=== PATIENT | male | born 1965 | race African-American/Black ===

== ENCOUNTER 2017-02-01 08:47 | Emergency (ER) | payer BC ==
[2017-02-01] MEDS ORDERED: Labetalol IV* 5 MG/ML 20 ML VIAL IV PUSH ONE ×2 (09:15→11:15)
[2017-02-01] MEDS ORDERED: ValACYclovir (*) 1 GM TAB PO ONE (09:16)
[2017-02-01 09:40] LABS: Hematocrit 45 % (42-52); Hemoglobin 14.8 g/dl (14.0-18.0); Mean Corpuscular HGB Conc 33 g/dl (31-36); Mean Corpuscular Hemoglobin 26 pg (27-31); Mean Corpuscular Volume 81 fL (80-94); Mean Platelet Volume 9 um3 (7.4-10.4); Red Blood Count 5.61 10^6/ul (4.0-5.4); Red Cell Distribution Width 14 % (10.5-15); White Blood Count 11.8 10^3/ul (3.5-10.8)
[2017-02-01 09:43] LABS: Add Diff/Slide Review? Slide Review Added; Comments Flag Yes
[2017-02-01 09:58] LABS: Albumin 4.1 g/dL (3.2-5.2); BUN/Creatinine Ratio 10.7 (8-20); Calcium 9.3 mg/dL (8.6-10.3); EGFR African American 124.9 (>60); EGFR Non-African American 97.1 (>60); Globulin 3.3 g/dL (2-4); Potassium 3.7 mmol/L (3.5-5.0); Total Bilirubin 0.6 mg/dL (0.2-1.0); Total Protein 7.4 g/dL (6.4-8.9)
[2017-02-01] MEDS ORDERED: predniSONE TAB* 20 MG PO ONE (11:14)
--- NOTE | 2017-02-01 11:21 | RAD ---
Indication: LEFT side facial numbness. Unable to completely close the LEFT eye. Previous similar episode. Comparison: No relevant prior exams available on the [facility] for comparison. Technique: Noncontrast CT vertex of skull through foramen magnum. Report: The sulci, ventricles, and basal cisterns are normal for age. Tracy matter white matter differentiation is preserved without evidence for edema. No intra or extra axial hemorrhage, mass, or fluid collection detected. Unremarkable visualized orbital contents. Unremarkable calvarium and skull base. Unremarkable scalp. The visualized paranasal sinuses and mastoid air spaces are clear. IMPRESSION: Negative unenhanced head CT.
[2017-02-01 11:39] LABS: Urine Bacteria Absent (Absent); Urine Bilirubin Negative (Negative); Urine Glucose Negative (Negative); Urine Nitrite Negative (Negative)
[2017-02-01 12:28] VITALS: BP 148/107
--- NOTE | 2017-02-02 17:40 | ED ---
Gwendolyn Alfred Edward, scribed for Antony Alves MD on 02/01/17 at 1000 . Neurological HPI - HPI Summary HPI Summary: 51 y/o male presents to ED with left facial drooping. Facial droop started yesterday and has not resolved. 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 Associated sx: discomfort in the back of his left neck that started 2 days ago, fever 2 days ago (resolved). Denies cold sores. 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 Patient is a daily smoker, no EtOH, no drug use. - History of Current Complaint Chief Complaint: EDNeurologicalDeficit Stated Complaint: LT SIDE FACIAL NUMBNESS Time Seen by Provider: 02/01/17 08:57 Hx Obtained From: Patient Onset/Duration: Started days ago - Started yesterday Timing: Constant Neurological Deficit Location: Facial - Left facial drooping Pain Intensity: 2 Character: Other: - Left facial drooping Aggravating: Nothing Alleviating: Nothing Associated Signs and Symptoms: Positive: Pain - Neck pain, back left, Fever - 2 days, none currently - Allergy/Home Medications Allergies/Adverse Reactions: Allergies Allergy/AdvReac Type Severity Reaction Status Date / Time Shellfish Allergy Allergy Anaphylatic Verified 02/01/17 09:07 Shock Home Medications: Home Medications Diltiazem XR (NF) [Cartia XR (NF)] 240 mg PO DAILY 02/01/17 [History Confirmed 02/01/17] Pravastatin (NF) [Pravachol (NF)] 10 mg PO DAILY 02/01/17 [History Confirmed ] PMH/Surg Hx/FS Hx/Imm Hx Previously Healthy: No Cardiovascular History: Reports: Hx Hypertension - Takes Diltiazem Neurological History: Reports: Other Neuro Impairments/Disorders - Webb's palsy - Surgical History Surgery Procedure, Year, and Place: Root canal November 2016 Infectious Disease History: No Infectious Disease History: Denies: Traveled Outside the [place] in Last 30 Days - Family History Known Family History: Positive: Hypertension - Father's side, Diabetes - mother' s side, Other - Mother's side - CHF; Sister - substance abuse, dialysis - Social History Alcohol Use: None Hx Substance Use: No Substance Use Type: Reports: None Hx Tobacco Use: Yes Smoking Status (MU): Heavy Every Day Tobacco Smoker Review of Systems Positive: Fever - 2 days ago. None currently Eyes: Negative ENT: Negative Cardiovascular: Negative Respiratory: Negative Gastrointestinal: Negative Genitourinary: Negative Positive: Myalgia - Back left neck discomfort Skin: Negative Positive: Weakness - Left facial weakness Psychological: Normal All Other Systems Reviewed And Are Negative: Yes Physical Exam - Summary Physical Exam Summary: VITAL SIGNS:~Reviewed. GENERAL:~~Patient is a well-developed and nourished male who is lying comfortable in the stretcher. ~Patient is not in any acute respiratory distress. HEAD AND FACE:~No signs of trauma.~~No ecchymosis, hematomas or skull depressions.~No sinus tenderness. EYES:~PERRLA, EOMI x 2, No injected conjunctiva, no nystagmus. No photophobia. EARS:~Hearing grossly intact. Ear canals and tympanic membranes are within normal limits. MOUTH:~Oropharynx within normal limits. NECK:~Supple, trachea is midline, no adenopathy, no JVD, no carotid bruit, no c- spine tenderness, neck with full ROM. No meningeal signs, no Kernig's or brudzinskis signs. CHEST:~Symmetric, no tenderness at palpation LUNGS:~Clear to auscultation bilaterally. No wheezing or crackles. CVS:~Regular rate and rhythm, S1 and S2 present, no murmurs or gallops appreciated. ABDOMEN:~Soft, non-tender. No signs of distention. No rebound no guarding, and no masses palpated. Bowel sounds are normal. EXTREMITIES:~FROM in all major joints, no edema, no cyanosis or clubbing. NEURO:~Alert and oriented x 3. Left facial weakness. Speech is normal and follows commands. SKIN:~Dry and warm Triage Information Reviewed: Yes Vital Signs On Initial Exam: Initial Vitals Temp Pulse Resp BP Pulse Ox 97.7 F 96 20 176/117 98 02/01/17 08:48 02/01/17 08:48 02/01/17 08:48 02/01/17 08:48 02/01/17 08:48 Vital Signs Reviewed: Yes - Irwin Coma Scale Coma Scale Total: 15 Diagnostics - Vital Signs Vital Signs Temp Pulse Resp BP Pulse Ox 02/01/17 08:54 97.7 F 92 20 176/117 100 02/01/17 08:48 97.7 F 96 20 176/117 98 - Laboratory Lab Results: Lab Results 02/01/17 02/01/17 02/01/17 Range/Units 09:25 09:25 09:25 WBC 11.8 H (3.5-10.8) 10^3/ul RBC 5.61 H (4.0-5.4) 10^6/ul Hgb 14.8 (14.0-18.0) g/dl Hct 45 (42-52) % MCV 81 (80-94) fL MCH 26 L (27-31) pg MCHC 33 (31-36) g/dl RDW 14 (10.5-15) % Plt Count 196 (150-450) 10^3/ul MPV 9 (7.4-10.4) um3 Neut % (Auto) 58.8 (38-83) % Lymph % (Auto) 25.0 (25-47) % Har[place] % (Auto) 14.4 H (1-9) % Eos % (Auto) 1.1 (0-6) % Baso % (Auto) 0.7 (0-2) % Absolute Neuts (auto) 7.0 (1.5-7.7) 10^3/ul Absolute Lymphs (auto) 3.0 (1.0-4.8) 10^3/ul Absolute Monos (auto) 1.7 H (0-0.8) 10^3/ul Absolute Eos (auto) 0.1 (0-0.6) 10^3/ul Absolute Basos (auto) 0.1 (0-0.2) 10^3/ul Absolute Nucleated RBC 0.01 10^3/ul Nucleated RBC % 0.1 Sodium 136 (133-145) mmol/L Potassium 3.7 (3.5-5.0) mmol/L Chloride 104 (101-111) mmol/L Carbon Dioxide 27 (22-32) mmol/L Anion Gap 5 (2-11) mmol/L BUN 9 (6-24) mg/dL Creatinine 0.84 (0.67-1.17) mg/dL Est GFR ( Amer) 124.9 (>60) Est GFR (Non-Af Amer) 97.1 (>60) BUN/Creatinine Ratio 10.7 (8-20) Glucose 100 (70-100) mg/dL Calcium 9.3 (8.6-10.3) mg/dL Total Bilirubin 0.60 (0.2-1.0) mg/dL AST 16 (13-39) U/L ALT 16 (7-52) U/L Alkaline Phosphatase 105 H (34-104) U/L Total Protein 7.4 (6.4-8.9) g/dL Albumin 4.1 (3.2-5.2) g/dL Globulin 3.3 (2-4) g/dL Albumin/Globulin Ratio 1.2 (1-3) Urine Color Urine Appearance Urine pH (5-9) Ur Specific [place] (1.010-1.030) Urine Protein (Negative) Urine Ketones (Negative) Urine Blood (Negative) Urine Nitrate (Negative) Urine Bilirubin (Negative) Urine Urobilinogen (Negative) Ur Leukocyte Esterase (Negative) Urine WBC (Auto) (Absent) Urine RBC (Auto) (Absent) Ur Squamous Epith Cells (Absent) Urine Bacteria (Absent) Urine Glucose (Negative) Lyme Disease Serology Negative (Negative) 02/01/17 Range/Units 11:20 WBC (3.5-10.8) 10^3/ul RBC (4.0-5.4) 10^6/ul Hgb (14.0-18.0) g/dl Hct (42-52) % MCV (80-94) fL MCH (27-31) pg MCHC (31-36) g/dl RDW (10.5-15) % Plt Count (150-450) 10^3/ul MPV (7.4-10.4) um3 Neut % (Auto) (38-83) % Lymph % (Auto) (25-47) % Har[place] % (Auto) (1-9) % Eos % (Auto) (0-6) % Baso % (Auto) (0-2) % Absolute Neuts (auto) (1.5-7.7) 10^3/ul Absolute Lymphs (auto) (1.0-4.8) 10^3/ul Absolute Monos (auto) (0-0.8) 10^3/ul Absolute Eos (auto) (0-0.6) 10^3/ul Absolute Basos (auto) (0-0.2) 10^3/ul Absolute Nucleated RBC 10^3/ul Nucleated RBC % Sodium (133-145) mmol/L Potassium (3.5-5.0) mmol/L Chloride (101-111) mmol/L Carbon Dioxide (22-32) mmol/L Anion Gap (2-11) mmol/L BUN (6-24) mg/dL Creatinine (0.67-1.17) mg/dL Est GFR ( Amer) (>60) Est GFR (Non-Af Amer) (>60) BUN/Creatinine Ratio (8-20) Glucose (70-100) mg/dL Calcium (8.6-10.3) mg/dL Total Bilirubin (0.2-1.0) mg/dL AST (13-39) U/L ALT (7-52) U/L Alkaline Phosphatase (34-104) U/L Total Protein (6.4-8.9) g/dL Albumin (3.2-5.2) g/dL Globulin (2-4) g/dL Albumin/Globulin Ratio (1-3) Urine Color Yellow Urine Appearance Clear Urine pH 6.0 (5-9) Ur Specific [place] 1.020 (1.010-1.030) Urine Protein 2+(100 mg/dl) H (Negative) Urine Ketones Negative (Negative) Urine Blood Negative (Negative) Urine Nitrate Negative (Negative) Urine Bilirubin Negative (Negative) Urine Urobilinogen Negative (Negative) Ur Leukocyte Esterase Trace H (Negative) Urine WBC (Auto) Trace(0-5/hpf) (Absent) Urine RBC (Auto) Absent (Absent) Ur Squamous Epith Cells Present H (Absent) Urine Bacteria Absent (Absent) Urine Glucose Negative (Negative) Lyme Disease Serology (Negative) Result Diagrams: 02/01/17 09:25 02/01/17 09:25 Lab Statement: Any lab studies that have been ordered have been reviewed, and results considered in the medical decision making process. - CT Brain CT CT Interpretation: No Acute Changes - Negative unenhanced head CT. CT Interpretation Completed By: Radiologist - EKG 1 EKG Interpretation: 09:23 - Sinus rhythm @ 77 bpm, no ST elevations. Course/Dx - Course Assessment/Plan: 51 y/o male presents to ED with left facial drooping. Facial droop started yesterday and has not resolved. 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 Associated sx: discomfort in the back of his left neck that started 2 days ago, fever 2 days ago (resolved). Denies cold sores. 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 Patient is a daily smoker, no EtOH, no drug use. WBC 11.8, UA (-) UTI. Head CT showed negative unenhanced head CT. Therefore, I believe the patient has [place] palsy. I started the patient on Valtrex and prednisone. I discussed with the patient, and he was instructed to F /U with PCP. He was instructed to wear eyepatch as much as he can to prevent dryness of the eye. The patient understands and agrees. He was also instructed to return to the ED if he experiences any upper or lower extremity weakness. Lyme titer was sent and will be followed up by his PCP. I discussed all the findings and test results with the patient. Patient was instructed to return to the emergency room immediately if any of the symptoms return or worsens. Patient understands and agrees. Plan of care was discussed with the patient and patient understands and agrees with the plan of care. All questions were answered at patient satisfaction. There were no further complaints or concerns. Patient is alert and oriented x 3. Patient vital signs are stable. Patient is to follow up with primary care physician in the next 2 to 3 days. Patient understands and agrees. - Differential Dx Differential Diagnoses Neuro: Positive: Cerebrovascular Accident, Seizure Disorder, Transient Ischemic Attack - Diagnoses Provider Diagnoses: Webb's palsy Discharge - Discharge Plan Condition: Stable Disposition: HOME Prescriptions: ValACYclovir (*) [Valtrex 1 GM(*)] 1 gm PO TID #30 tab predniSONE TAB* [Deltasone TAB*] 40 mg PO DAILY #8 tab Patient Education Materials: Webb Palsy (ED) Referrals: Joel Rascon MD [Primary Care Provider] - 3 Days (Follow up in 2-3 days.) The documentation as recorded by the Gwendolyn valdivia Edward accurately reflects the service I personally performed and the decisions made by , Antony Alves MD.
== END 2017-02-01 12:36 | disposition home or self-care (01) ==
LOC: ED 08:47
DX: G51.0 Bell's palsy (principal); M54.2 Cervicalgia; R50.9 Fever, unspecified; F17.210 Nicotine dependence, cigarettes, uncomplicated; R53.1 Weakness
CPT/HCPCS: 36415; 70450; 80053; 81003; 81015; 85025; 86618; 87086; 93005; 99283; A9270-GY; J7512